=== PATIENT | male | born 1985 | race Caucasian/White ===

== ENCOUNTER → 2016-10-24 | Outpatient (CLI) | payer OTHER | LOC: CIMAGING 13:22 | PROVIDERS: ATTEND Internal Medicine | DX: M79.641 Pain in right hand (principal) | CPT/HCPCS: 73130-PO ==

== ENCOUNTER 2018-05-31 10:04 | Emergency (ER) | payer BC, OTHER ==
--- NOTE | 2018-05-31 10:42 | EDPHY ---
H & P Time Seen by Provider: 05/31/18 10:23 HPI/ROS: CHIEF COMPLAINT: "Infection on nose" HISTORY OF PRESENT ILLNESS: 32-year-old immunocompetent male with out-of-date tetanus complaining of erythema, tenderness to the tip of his nose as well as the left nostril on medial aspect. Spine occurring for 2 days. He has seen at an urgent care and prescribed mupirocin ointment as well as Bactrim. He notes that the symptoms continue and he has noticed some soft tissue swelling just left lateral to the nose as well. High no fever no chills. No nausea or vomiting. No trauma. No pain with extraocular movements. PRIMARY CARE PROVIDER: REVIEW OF SYSTEMS: 10 systems reviewed and are negative with exception of illness mentioned in the history of present illness PHYSICAL EXAM (Prior to examination, patient consented to physical exam, hands were washed and my usual and customary physical exam procedures followed) 1) GENERAL: Well-developed, well-nourished, alert and oriented. Appears to be in no acute distress. 2) HEAD: Normocephalic 3) HEENT: sclera anicteric . Mild soft tissue swelling a left lateral the nose. Nasolabial folds are symmetrical. Extraocular movements are intact and are pain-free. No proptosis. No periorbital erythema or induration. No crepitus. No facial vesicles Tip of nose erythema with no vesicles. Left nostril septal aspect tender and vesicle. No intraoral lesions. 4) LUNGS: Breathing comfortably. Smoking Status: Light smoker Constitutional: Initial Vital Signs Temperature (C) 36.6 C 05/31/18 10:18 Heart Rate 75 05/31/18 10:18 Respiratory Rate 18 05/31/18 10:18 Blood Pressure 117/82 H 05/31/18 10:18 O2 Sat (%) 97 05/31/18 10:18 O2 Delivery Mode Room Air Allergies/Adverse Reactions: No Known Allergies Allergy (Unverified 05/31/18 10:17) Home Medications: Medication Instructions Recorded Cephalexin [Keflex] 500 mg PO TID 7 Days cap 05/31/18 MDM/Departure - MDM ED Course/Re-evaluation: Doubt zoster. Doubt periorbital or orbital cellulitis. Recommend continuing to mupirocin ointment as well as Bactrim, also adding Keflex. Recommend warm compresses. At this time I do not think that imaging studies of the face are indicated. I do not think that IV antibiotics are indicated. Do not think that hospitalization is indicated. Recommend close follow-up in 2 days. Given my usual and customary facial infection precautions instructions. He feels comfortable being discharged all questions and concerns addressed by myself. Patient's tetanus has been updated. I saw this patient independently based on established practice protocols. Care of patient under supervision of secondary supervising physician Dr Mcdaniel . Differential Diagnosis: In no particular order including but not limited to zoster, cellulitis, impetigo - Depart Disposition: Home, Routine, Self-Care Clinical Impression: Facial cellulitis Condition: Good Instructions: Cellulitis (ED) Additional Instructions: Return to the ER if you develop pain with eye movements, fevers, vomiting, flu- like symptoms, or any other symptoms that concern you Prescriptions: Cephalexin [Keflex] 500 mg PO TID 7 Days cap Referrals: Vijaya Villasenor MD [Medical Doctor] - As per Instructions
[2018-05-31 10:46] VITALS: BP 115/85
[2018-05-31] MEDS ORDERED: TDAP ADULT 0.5 ML INJ (BOOSTRIX) IM ONE (10:53)
== END 2018-05-31 11:11 | disposition home or self-care (01) ==
DX: L03.211 Cellulitis of face (principal); F17.200 Nicotine dependence, unspecified, uncomplicated; Z23 Encounter for immunization